=== PATIENT | female | born 1995 | race Caucasian/White ===

== ENCOUNTER 2019-03-29 11:47 | Outpatient (CLI) | payer OTHER ==
[2019-03-29] MEDS ORDERED: IOTHALAMATE MEGLUMINE 50 ML VIAL ONE ×2 (12:07→12:42)
[2019-03-29] MEDS ORDERED: GADOBUTROL 10 MMOL/10 ML VIAL ONE ×2 (12:07→12:42)
[2019-03-29] MEDS ORDERED: BUFFERED LIDOCAINE 10 ML SYRINGE ONE ×2 (12:08→12:42)
[2019-03-29] MEDS ORDERED: BUFFERED LIDOCAINE 10 ML SYRINGE IU ONE (12:45)
[2019-03-29] MEDS ORDERED: IOTHALAMATE MEGLUMINE 50 ML VIAL IVP ONE (12:45)
[2019-03-29] MEDS ORDERED: GADOBUTROL 10 MMOL/10 ML VIAL IVP ONE (12:45)
--- NOTE | 2019-03-29 17:04 | XRAY Report ---
Reason: RT HIP PAIN Procedure Date: 03/29/2019 Accession Number: [id number] / [id number] Procedure: FL - Arthrogram Needle Placement CPT Code: FULL RESULT: EXAM: RIGHT HIP ARTHROGRAPHIC INJECTION WITH FLUOROSCOPIC GUIDANCE EXAM DATE: 03/29/2019 12:26 PM. CLINICAL HISTORY: RT HIP PAIN. COMPARISON: None. TECHNIQUE: The risks, benefits, and alternatives of the procedure were discussed with the patient. All questions were answered. Written and verbal consent were obtained. The right hip joint was marked under fluoroscopy and prepped and draped in a sterile manner. Local anesthesia was performed with 1% lidocaine. A 22-gauge needle was then inserted into the hip joint. 10 mL of a solution containing 25% 1% lidocaine, 25% iodinated contrast, and a 1:200 dilution of gadolinium contrast in sterile saline was then injected. The needle was removed without immediate complication. Other: None. Fluoroscopy Time: 30 seconds. Number of Images: 3. FINDINGS: Bones and Joints: No fracture or subluxation. Injection: Fluoroscopic images demonstrate needle placement and contrast in the hip joint. IMPRESSION: Right RADIA
--- NOTE | 2019-03-29 17:05 | XRAY Report ---
Reason: RIGHT KNEE PAIN Procedure Date: 03/29/2019 Accession Number: [id number] / [id number] Procedure: FL - Arthrogram Needle Placement CPT Code: FULL RESULT: EXAM: RIGHT KNEE ARTHROGRAPHIC INJECTION WITH FLUOROSCOPIC GUIDANCE EXAM DATE: 03/29/2019 12:39 PM. CLINICAL HISTORY: RIGHT KNEE PAIN. COMPARISON: ARTHROGRAM KNEE RT 03/29/2019 1:17 PM. TECHNIQUE: The risks, benefits, and alternatives of the procedure were discussed with the patient. All questions were answered. Written and verbal consent were obtained. The right knee joint was marked under fluoroscopy and prepped and draped in a sterile manner. Local anesthesia was performed with 1% lidocaine. A 22-gauge needle was then inserted into the knee joint. 40 mL of a solution containing 50% iodinated contrast and a 1:200 dilution of gadolinium contrast in sterile saline was then injected. The needle was removed without immediate complication. Other: None. Fluoroscopy Time: 47 seconds. Number of Images: 2. FINDINGS: Bones and joints: No fracture or subluxation. Injection: Fluoroscopic images demonstrate needle placement and contrast in the knee joint. IMPRESSION: Successful fluoroscopically guided arthrographic injection of the right knee. RADIA
--- NOTE | 2019-03-30 10:17 | MRI Report ---
Reason: RT KNEE PAIN Procedure Date: 03/29/2019 Accession Number: [id number] / [id number] Procedure: MRI - Arthrogram Knee RT CPT Code: FULL RESULT: EXAM: RIGHT KNEE MRI ARTHROGRAM WITH CONTRAST EXAM DATE: 03/29/2019 01:56 PM. CLINICAL HISTORY: Right knee pain. COMPARISON: None. TECHNIQUE: Multiplanar, multisequence T1-weighted and fluid-sensitive sequences of the knee after an arthrographic injection of dilute gadolinium, dictated under a separate exam. Other: None. FINDINGS: Bones: No fractures or subluxations. No marrow edema. No bone lesions. Articular Cartilage: Unremarkable. Medial Meniscus: The medial meniscus is intact. Lateral Meniscus: The lateral meniscus is intact. Cruciate Ligaments: The anterior and posterior cruciate ligaments are intact. Collateral Ligaments: The medial collateral and lateral collateral ligamentous structures are intact. Tendons: The quadriceps, patellar, semimembranosus, and popliteus tendons are unremarkable. Musculature: No edema or fatty atrophy. Other: No popliteal cyst. No loose bodies. The medial and lateral retinacula are intact. The subcutaneous tissues and fat pads are unremarkable. IMPRESSION: 1. Overall, normal knee arthrogram. 2. Menisci, cruciates and collaterals appear unremarkable. No popliteal cyst, no loose bodies. RADIA
--- NOTE | 2019-03-30 15:49 | MRI Report ---
Reason: RT HIP PAIN Procedure Date: 03/29/2019 Accession Number: [id number] / [id number] Procedure: MRI - Arthrogram Hip RT CPT Code: FULL RESULT: EXAM: RIGHT HIP MRI ARTHROGRAM WITH CONTRAST EXAM DATE: 03/29/2019 02:58 PM. CLINICAL HISTORY: Right hip pain. COMPARISON: None. TECHNIQUE: Multiplanar, multisequence T1-weighted and fluid-sensitive, small abyye-gj-gulq sequences of the hip and large ycofh-hi-vsph sequences of the pelvis after an arthrographic injection of dilute gadolinium, dictated under a separate exam. Other: None. FINDINGS: Bones: No fractures or subluxations. No marrow edema or bone lesions. Right Hip: No acetabular retroversion. Femoral head/neck offset is within normal limits. No loose bodies. The articular cartilage is intact. There is some minimal marginal osteophytosis at the superolateral femoral head neck junction. Lateral center edge angle is 37.9 degrees. No discrete tears. There is a small amount of minimal increased signal in the superolateral labrum, however this is less dense than expected if a tear was present. Series 601 image 11. The ligamentum teres is intact. Other Joints: The visualized lumbar spine, sacroiliac joints, symphysis pubis, and contralateral hip are unremarkable. Musculature: No edema or fatty atrophy. The gluteus medius and minimus tendons are normal. The visualized hamstring tendons are normal. The ischiofemoral space is normal. Pelvic Cavity: The visualized viscera are unremarkable. No lymphadenopathy. No free fluid in the pelvis. Other: The visualized sciatic nerves are unremarkable. No bursitis. The subcutaneous tissues are unremarkable. IMPRESSION: 1. Normal bones, no fractures. No subjacent marrow edema. 2. Small amount of early osteoarthritic changes at the superolateral femoral head neck junction. 3. No dysplastic changes. 4. Labrum shows some mild undersurface increased signal but less than expected for a labral tear. No tears are noted. RADIA
== END 2019-03-29 11:48 | disposition home or self-care (01) ==
LOC: DI 11:47
PROVIDERS: ATTEND Family Medicine
DX: M16.11 Unilateral primary osteoarthritis, right hip (principal); M25.561 Pain in right knee
CPT/HCPCS: 27093; 27369; 73722; 77002; A9585; Q9961

== ENCOUNTER 2019-11-28 08:19 | Outpatient (CLI) | payer OTHER ==
--- NOTE | 2019-11-28 10:08 | MRI Report ---
PROCEDURE: Lumbar Spine W/O INDICATIONS: CHRONIC RT SIDED LOW BACK PAIN TECHNIQUE: Noncontrast sagittal T1 spin echo and T2 fast echo, sagittal STIR, axial T1 and T2 fast spin echo thr ough the lumbar spine. In cases with scoliosis, additional coronal T2 fast spin echo may be performe d. COMPARISON: None. FINDINGS: Image quality: Excellent. Alignment and Curvature: No plain films are available for comparison. Thus, for numbering purposes, 5 lumbar type vertebral bodies will be presumed for the current report. This should be confirmed with plain film correlation prior to any lumbar spinal intervention. There is mild grade 1 retrolisthesis of L5 on S1. Bone Marrow: Marrow is of normal overall signal. No acute vertebral body compression fractures. Mi ld reactive signal within the endplates adjacent to the L5-S1 intervertebral disc. Spinal Cord: Conus medullaris terminates at the lower L1 level. Visualized cord demonstrates normal signal and size. Paraspinous Soft Tissues: No paravertebral masses. T12-L1: Normal in appearance. L1-L2: Normal in appearance. L2-L3: Normal in appearance. L3-L4: Normal in appearance. L4-L5: Mild facet hypertrophy bilaterally. No significant canal, nor foraminal stenosis. L5-S1: Mild disc height loss and desiccation. Mild diffuse disc bulge with superimposed central prot rusion. Moderate bilateral facet hypertrophy. Mild canal stenosis. Mild bilateral foraminal stenosis. There is mild compression and posterior deviation of the right S1 nerve root. IMPRESSION: 1. Multilevel mild degenerative disc and facet disease, in addition to epidural lipomatosis and ligam entum flavum hypertrophy. 2. Mild compression and posterior deviation of the right S1 nerve root at the L5-S1 disc space level. Recommend correlation with clinical symptoms to ascertain relevance of this finding. 3. Five lumbar type vertebral bodies were presumed for the purposes of the current report. Correlati on with plainfilms for numbering purposes is recommended prior to any lumbar spinal intervention. Reviewed by: Jamel Rosas MD on 11/28/2019 10:06 AM PDT Approved by: Jamel Rosas MD on 11/28/2019 10:06 AM PDT Station ID: [id number]
== END 2019-11-28 08:20 | disposition home or self-care (01) ==
LOC: DI 08:19
PROVIDERS: ATTEND Physician Assistant Surgical
DX: M51.37 Other intervertebral disc degeneration, lumbosacral region (principal); M47.817 Spondylosis without myelopathy or radiculopathy, lumbosacral region; M47.816 Spondylosis without myelopathy or radiculopathy, lumbar region; M43.17 Spondylolisthesis, lumbosacral region; M48.07 Spinal stenosis, lumbosacral region; M51.27 Other intervertebral disc displacement, lumbosacral region; E88.2 Lipomatosis, not elsewhere classified
CPT/HCPCS: 72148

== ENCOUNTER 2023-08-31 16:41 | Outpatient (CLI) | payer OTHER ==
--- NOTE | 2023-09-01 10:44 | MRI Report ---
PROCEDURE: Shoulder LT WO INDICATIONS: SHOULDER PAIN TECHNIQUE: Noncontrast oblique coronal T2 fast spin echo with fat saturation, oblique sagittal T1 spin echo and T2 fast spin echo with fat saturation, axial T1 spin echo and T2 fast spin echo with fat saturation t hrough the shoulder. COMPARISON: None FINDINGS: Image quality: Diagnostic Rotator cuff Bulk: No significant atrophy Teres minor: Intact Supraspinatus: Small interstitial tear at the mid to distal tendon. There is also fraying of the burs al surface. Mild tendinopathy. Infraspinatus: Mild tendinopathy. Subscapularis: Intact Bones and bursae GH joint: Intact AC joint: Mild degenerative changes Humeral head: No acute fracture Scapula and acromion: No acute fracture Bursa: Mild bursitis Capsule Labrum: Possible superior labral tear. There is a possible additional sublabral foramen and recess ( /). Long head biceps tendon: Overall intact IGHL: Intact Rotator interval: Mildly effaced Soft tissues: Unremarkable IMPRESSION: Anterior superior labrum defect may represent tear, versus superimposed of labral anatomic recess/for amen. An MR arthrogram could be helpful. See image 09/13 Small tear and tendinopathy of the supraspinatus and infraspinatus. Mild acromioclavicular degenerative changes and subjacent bursitis. Mild effacement of the rotator interval fat, sometimes seen with capsulitis Reviewed by: Hu Morgan MD on 09/01/2023 10:43 AM PDT Approved by: Hu Morgan MD on 09/01/2023 10:43 AM PDT Station ID: [id number]
== END 2023-08-31 16:42 | disposition home or self-care (01) ==
LOC: DI 16:41
PROVIDERS: ATTEND Nurse Practitioner Family
DX: S46.012A Strain of muscle(s) and tendon(s) of the rotator cuff of left shoulder, initial encounter (principal); M19.012 Primary osteoarthritis, left shoulder; M75.52 Bursitis of left shoulder

== ENCOUNTER 2023-12-20 14:02 | Day surgery (SDC) | payer OTHER ==
[2023-12-20 14:51] LABS: BILIRUBIN,URINE NEGATIVE (NEGATIVE); GLUCOSE, URINE (UA) NEGATIVE (NEGATIVE); HCG UR QUAL NEGATIVE; KETONES,URINE (UA) NEGATIVE (NEGATIVE); LEUKOCYTE ESTERASE, URINE NEGATIVE (NEGATIVE); NITRITE,URINE NEGATIVE (NEGATIVE); OCCULT BLOOD,URINE NEGATIVE (NEGATIVE); PROTEIN,URINE NEGATIVE (NEGATIVE); UROBILINOGEN,URINE 0.2 (NORMAL) E.U./dL (NORMAL)
[2023-12-20 14:51] LABS: BASOPHILS % (AUTO) 0.1 %; HCT - HEMATOCRIT 41.9 % (37.0-47.0); HGB - HEMOGLOBIN 13.5 g/dL (12.0-16.0); LYMPHOCYTES # (AUTO) 1.9 10^3/uL (1.5-3.5); LYMPHOCYTES % (AUTO) 12.7 %; MEAN CORPUSCULAR HEMOGLOBIN 28.9 pg (27.0-31.0); MEAN CORPUSCULAR HGB CONC 32.2 g/dL (32.0-36.0); MEAN CORPUSCULAR VOLUME 89.7 fL (81.0-99.0); MEAN PLATELET VOLUME 10.1 fL (7.9-10.8); MONOCYTES # (AUTO) 1.1 10^3/uL (0.0-1.0); MONOCYTES % (AUTO) 7.2 %; NEUTROPHILS # (AUTO) 12.2 10^3/uL (1.5-6.6); NEUTROPHILS % (AUTO) 79.7 %; PLT - PLATELET COUNT 336 10^3/uL (130-450); RED BLOOD COUNT 4.67 10^6/uL (4.20-5.40); RED CELL DISTRIBUTION WIDTH 13.1 % (12.0-15.0); WHITE BLOOD COUNT 15.3 x10^3/uL (4.8-10.8)
[2023-12-20 14:52] LABS: CLARITY,URINE CLEAR (CLEAR)
[2023-12-20 15:04] LABS: ALBUMIN 4.6 g/dL (3.2-5.5); ALBUMIN/GLOBULIN RATIO 1.4 (1.0-2.2); BILIRUBIN,TOTAL 0.8 mg/dL (0.2-1.0); CALCIUM 9.9 mg/dL (8.5-10.3); CREATININE 0.7 mg/dL (0.6-1.3); POTASSIUM 3.6 mmol/L (3.5-4.5); TOTAL PROTEIN 7.9 g/dL (6.4-8.9)
--- NOTE | 2023-12-20 15:45 | ED Physician Documentation ---
PD HPI ABD PAIN - Stated complaint Stated Complaint: ABD PX,N/V,FEVER - Chief complaint Chief Complaint: Abd Pain - History obtained from History obtained from: Patient - Additional information Additional information: Otherwise healthy 28-year-old woman with history of presents with gradual onset abdominal pain starting in the middle of the night last night. She had a little stomach upset going to bed but did not seem out of the ordinary. She also had "a low-grade fever." She vomited several times but is no longer nauseous. 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 : None HEENT: None Psych: ADD/ADHD Musculoskeletal: None Derm: None - Past Surgical History Past Surgical History: No - Allergies Allergies/Adverse Reactions: Allergies Allergy/AdvReac Type Severity Reaction Status Date / Time No Known Drug Allergies Allergy Verified 12/20/23 15:36 - Social History Does the pt smoke?: No Smoking Status: Never smoker Does the pt drink ETOH?: Yes Does the pt have substance abuse?: No - Immunizations Immunizations are current?: Yes - POLST Patient has POLST: No PD ED PE NORMAL - Vitals Vital signs reviewed: Yes - General General: Alert and oriented X 3, No acute distress - Cardiac Cardiac: RRR, No murmur - Respiratory Respiratory: No respiratory distress, Clear bilaterally - Abdomen Abdomen: Normal bowel sounds, Soft, Other (Exquisitely tender in the right lower quadrant with positive Rovsing sign) - Neuro Neuro: Alert and oriented X 3, 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, Normal speech Results - Vitals Vitals: Vital Signs - 24 hr 12/20/23 12/20/23 14:17 16:19 Temperature 36.6 C Heart Rate 88 77 Respiratory 18 16 Rate Blood Pressure 140/90 H 123/83 H O2 Saturation 100 97 Oxygen O2 Source Room air - Labs Labs: Laboratory Tests 12/20/23 12/20/23 12/20/23 14:28 14:48 14:48 WBC 15.3 H RBC 4.67 Hgb 13.5 Hct 41.9 MCV 89.7 MCH 28.9 MCHC 32.2 RDW 13.1 Plt Count 336 MPV 10.1 Neut # (Auto) 12.2 H Lymph # (Auto) 1.9 [place] # (Auto) 1.1 H Eos # (Auto) 0.0 Baso # (Auto) 0.0 Absolute Nucleated RBC 0.00 Nucleated RBC % 0.0 Sodium 136 Potassium 3.6 Chloride 102 Carbon Dioxide 27 Anion Gap 7.0 BUN 7 Creatinine 0.7 Estimated GFR (MDRD) 100 Glucose 111 H Calcium 9.9 Total Bilirubin 0.8 AST 12 ALT 13 Alkaline Phosphatase 69 Total Protein 7.9 Albumin 4.6 Globulin 3.3 Albumin/Globulin Ratio 1.4 Lipase 13 Urine Color YELLOW Urine Clarity CLEAR Urine pH 7.0 Ur Specific [place] <=1.005 Urine Protein NEGATIVE Urine Glucose (UA) NEGATIVE Urine Ketones NEGATIVE Urine Occult Blood NEGATIVE Urine Nitrite NEGATIVE Urine Bilirubin NEGATIVE Urine Urobilinogen 0.2 (NORMAL) Ur Leukocyte Esterase NEGATIVE Ur Microscopic Review NOT INDICATED Urine Culture Comments NOT INDICATED Urine HCG, Qual NEGATIVE - Rads (name of study) CT abdomen pelvis consistent with appendicitis Relevant Findings:: Final report received, EMP independent interpretation of test PD Medical Decision Making - ED course ED course: 28-year-old woman presents with right lower quadrant pain. Differential would include appendicitis, pelvic etiology, or other. Workup in the emergency department initially shows that she has a white count of 15,000 with an otherwise normal CBC, normal CMP, normal urinalysis and negative test. She was treated initially with 1 mg of IV hydromorphone and 15 mg of IV ketorolac and a CT with IV contrast was ordered. Spoke with Dr. Luna after CT results at approximately 4:45 PM and he requested Zosyn and will see the patient with plan for OR shortly. Departure - Departure Disposition: ED Transfer to [facility] Clinical Impression: Appendicitis Qualifiers: Appendicitis type: acute appendicitis Acute appendicitis type: with localized peritonitis Appendicitis gangrene presence: without gangrene Appendicitis perforation presence: without perforation Appendicitis abscess presence: without abscess Qualified Code(s): K35.30 - Acute appendicitis with localized peritonitis, without perforation or gangrene Condition: Good Record reviewed to determine appropriate education?: Yes Forms: PCP List
[2023-12-20] MEDS ORDERED: iohexoL-300 100 ML VIAL ONE (15:51)
[2023-12-20] MEDS: KETOROLAC 15 MG/ML VIAL IVP STA (15:55)
[2023-12-20] MEDS: HYDROmorphone 1 MG/ML CARPUJECT IVP STA (15:56)
--- NOTE | 2023-12-20 16:38 | CT Report ---
PROCEDURE: Abdomen/Pelvis W INDICATIONS: iv only, rlq [pain CONTRAST: 100ml [id number] TECHNIQUE: After the administration of intravenous contrast, a CT scan of the abdomen and pelvis was performed. Images were recorded and evaluated at appropriate window settings. Reformats: coronal and sagittal. F or radiation dose reduction, the following was used: automated exposure control, adjustment of mA and /or kV according to patient size. COMPARISON: None. FINDINGS: Image quality: Diagnostic. Lower chest: Unremarkable. Liver: No solid mass. Gallbladder: No radiopaque stones or wall thickening. Biliary tree: No intrahepatic or extrahepatic dilation, accounting for age. Spleen: No splenomegaly. Pancreas: No pancreatic ductal dilation. Adrenals: No adrenal nodule. Kidneys and ureters: No hydronephrosis. No renal cystic lesion which requires follow up. No solid mas s. Stomach, bowel and peritoneum: No gastric or small bowel dilation. No abnormal wall thickening. No pa thologic free fluid. A tubular structure in the right lower quadrant is assumed to represent a disten ded, fluid-filled appendix with extensive inflammatory change in the adjacent fat. Findings are consi stent with acute appendicitis. Lymph nodes: No central or retroperitoneal adenopathy. Vessels: No infrarenal aortic aneurysm. Patent portal vein. PELVIS Reproductive organs: Unremarkable. Bladder: No abnormal wall thickening, accounting for underdistention. Pelvic lymph nodes: No pelvic adenopathy by size criteria. Bones: No aggressive osseous abnormality. Other: No significant ventral or inguinal hernia. IMPRESSION: 1. Findings very likely represent acute appendicitis. The presence of extensive inflammatory change i n the adjacent fat raises the question of rupture or impending rupture. Reviewed by: Taj Mckay MD on 12/20/2023 4:37 PM PDT Approved by: Taj Mckay MD on 12/20/2023 4:37 PM PDT Station ID: [id number]
[2023-12-20] MEDS ORDERED: fentaNYL 100 MCG/2 ML VIAL ONE (17:28)
[2023-12-20] MEDS ORDERED: MIDAZOLAM 2 MG/2 ML VIAL ONE (17:28)
[2023-12-20] MEDS ORDERED: ONDANSETRON 4 MG/2 ML VIAL ONE (17:30)
[2023-12-20] MEDS ORDERED: KETOROLAC 30 MG/ML VIAL ONE (17:30)
[2023-12-20] MEDS ORDERED: DEXAMETHASONE 4 MG/ML VIAL ONE (17:30)
[2023-12-20] MEDS ORDERED: ROCURONIUM 50 MG/5 ML VIAL ONE (17:30)
--- NOTE | 2023-12-20 17:37 | HISTORY & PHYSICAL EXAMINATION ---
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 She experienced an episode of nausea and vomiting followed by anorexia all day. Her pain has not resolved and she came to the ED for evaluation. She denies fevers or chills. She is in the ED with her room mate who will care for her child while she is hospitalized. 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: positive: section Social & Family Hx - Living Situation Living Arrangement: At home Living Situation: With friend(s) - Social History Does the pt smoke?: No Smoking Status: Never smoker Does the pt drink ETOH?: Yes Does the pt have substance abuse?: No - POLST Patient has POLST: No - Family History Family History: Mother: Diabetes, Type 2 Meds/Allgy - Allergies Allergies/Adverse Reactions: Allergies Allergy/AdvReac Type Severity Reaction Status Date / Time No Known Drug Allergies Allergy Verified 12/20/23 15:36 Review of Systems - Gastrointestinal Gastrointestinal: reports: Abdominal pain, Nausea, Vomiting Exam - Vital Signs Vital Signs: Vital Signs x48h Temp Pulse Resp BP Pulse Ox 12/20/23 16:19 77 16 123/83 H 97 12/20/23 14:17 97.9 F 88 18 140/90 H 100 - Physical Exam General Appearance: positive: No acute distress, Alert Eyes Bilateral: positive: Normal inspection, PERRL, EOMI ENT: positive: ENT inspection nml, Pharynx nml Neck: positive: Nml inspection, Thyroid nml, No JVD, Trachea midline Respiratory: positive: Chest non-tender, No respiratory distress, Breath sounds nml Cardiovascular: positive: Regular rate & rhythm, No murmur Peripheral Pulses: positive: 2+ Abdomen: positive: No distention, Tenderness, Other (RLQ tenderness with referred rebound to the RLQ; BS present. No guarding.) Skin: positive: Color nml, No rash, Warm Extremities: positive: Non-tender, Full ROM, Nml appearance Neurologic/Psychiatric: positive: Oriented x3 Results - Lab Results Fish Bones: 12/20/23 14:48 12/20/23 14:48 Other Lab Results: Lab Results x24hrs 12/20/23 12/20/23 12/20/23 Range/Units 14:48 14:48 14:28 WBC 15.3 H (4.8-10.8) x10^3/uL RBC 4.67 (4.20-5.40) 10^6/uL Hgb 13.5 (12.0-16.0) g/dL Hct 41.9 (37.0-47.0) % MCV 89.7 (81.0-99.0) fL MCH 28.9 (27.0-31.0) pg MCHC 32.2 (32.0-36.0) g/dL RDW 13.1 (12.0-15.0) % Plt Count 336 (130-450) 10^3/uL MPV 10.1 (7.9-10.8) fL Neut # (Auto) 12.2 H (1.5-6.6) 10^3/uL Lymph # (Auto) 1.9 (1.5-3.5) 10^3/uL [place] # (Auto) 1.1 H (0.0-1.0) 10^3/uL Eos # (Auto) 0.0 (0.0-0.7) 10^3/uL Baso # (Auto) 0.0 (0.0-0.1) 10^3/uL Absolute Nucleated RBC 0.00 x10^3/uL Nucleated RBC % 0.0 /100WBC Sodium 136 (135-145) mmol/L Potassium 3.6 (3.5-4.5) mmol/L Chloride 102 (101-111) mmol/L Carbon Dioxide 27 (21-32) mmol/L Anion Gap 7.0 (6-13) BUN 7 (6-20) mg/dL Creatinine 0.7 (0.6-1.3) mg/dL Estimated GFR (MDRD) 100 (>89) Glucose 111 H (74-104) mg/dL Calcium 9.9 (8.5-10.3) mg/dL Total Bilirubin 0.8 (0.2-1.0) mg/dL AST 12 (10-42) IU/L ALT 13 (10-60) IU/L Alkaline Phosphatase 69 (42-121) IU/L Total Protein 7.9 (6.4-8.9) g/dL Albumin 4.6 (3.2-5.5) g/dL Globulin 3.3 (2.1-4.2) g/dL Albumin/Globulin Ratio 1.4 (1.0-2.2) Lipase 13 (11-82) U/L Urine Color YELLOW Urine Clarity CLEAR (CLEAR) Urine pH 7.0 (5.0-7.5) PH Ur Specific [place] <=1.005 (1.002-1.030) Urine Protein NEGATIVE (NEGATIVE) mg/dL Urine Glucose (UA) NEGATIVE (NEGATIVE) mg/dL Urine Ketones NEGATIVE (NEGATIVE) mg/dL Urine Occult Blood NEGATIVE (NEGATIVE) Urine Nitrite NEGATIVE (NEGATIVE) Urine Bilirubin NEGATIVE (NEGATIVE) Urine Urobilinogen 0.2 (NORMAL) (NORMAL) E.U./dL Ur Leukocyte Esterase NEGATIVE (NEGATIVE) Ur Microscopic Review NOT INDICATED Urine Culture Comments NOT INDICATED Urine HCG, Qual NEGATIVE - Diagnostic Imaging Results Diagnostic Imaging Results: positive: See rad report, Read independently Diagnostic Imaging Results Comments: CT ABD/Pelvis - Dilated tubular structure in RLQ with surrounding edema. No abscess or free air. No fecalith. Impression/Plan - Problem List Problem List: Assessment: 1) Acute appendicitis Plan: 1) IV fluids/Zosyn 2) NPO 3) Laparoscopic appendectomy, possible open appendectomy under GETA Consent: Slime has been counseled for the procedure, it's indications, risks, benefits and expected outcome as well as alternative therapies. We specifically discussed risks associated with anesthesia, bleeding, infection, injury to surrounding structures which may require additional surgery, and the possible need for conversion to an open procedure. We also discussed the possible need for a blood transfusion with its risks and benefits. Slime understands, agrees, and consents to the proposed operative strategy and requests that we proceed with the procedure as outlined in our discussion. Guicho Luna MD, [facility] General Surgery Service
[2023-12-20] MEDS ORDERED: LIDOCAINE 1%-EPI 1:100000 20 ML MDV ONE (17:43)
[2023-12-20] MEDS ORDERED: BUPIVACAINE 0.25% PF 10 ML VIAL ONE (17:43)
[2023-12-20] MEDS: LIDOCAINE 1% 50 ML MDV SUBQ ONE ×2 (18:22)
[2023-12-20] MEDS: BUPIVACAINE 0.25% PF 10 ML VIAL SUBQ ONE ×2 (18:22)
[2023-12-20] MEDS ORDERED: GLYCOPYRROLATE 1 MG/5 ML VIAL ONE (18:27)
[2023-12-20] MEDS ORDERED: SUGAMMADEX 200 MG/2 ML VIAL IVP ONE (18:45)
[2023-12-20] MEDS ORDERED: ACETAMINOPHEN 1,000 MG/100 ML 1,000 MG/100 ML BAG IV ONE (18:52)
[2023-12-20] MEDS ORDERED: HYDROmorphone 0.5 MG/0.5 ML SYRINGE IVP PRN ×2 (18:58→19:18)
[2023-12-20] MEDS ORDERED: SODIUM CHLORIDE FLUSH 0.9% 10 ML SYRINGE IVP PRN (18:58)
[2023-12-20] MEDS ORDERED: ONDANSETRON 4 MG/2 ML VIAL IVP PRN ×2 (18:58→19:18)
[2023-12-20] MEDS: LACTATED RINGERS 300 ML IV ONE (18:59)
--- NOTE | 2023-12-20 19:05 | OPERATIVE REPORT ---
Operative Report - Other Other Information/Narrative: PROCEDURE DATE: 12/20/2023 PREOPERATIVE DIAGNOSIS: Slime is a 28 year old female who has clinical, CT, and laboratory findings consistent with acute appendicitis. Slime is being taken to the operating room for laparoscopic appendectomy, possible open appendectomy. 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 ESTIMATED BLOOD LOSS: 5 mL. DRAINS: None SPECIMEN: Appendix COMPLICATIONS None FINDINGS: Acutely inflamed, dilated appendix without gangrene or perforation DESCRIPTION OF OPERATION: After consent for the procedure was obtained, the patient was brought to the operating room where in the supine position, general endotracheal anesthesia was administered. A surgical time-out was performed, i ndicating the patient and the procedure to be performed. The abdomen was prepped with alcohol-free chloroprep and draped in a sterile fashion. The subcutaneous tissue of each of the planned port sites was infiltrated with 1% Lidocaine with epinephrine in a 50/50 mix with 1/4 % Marcaine mixture. Pneumoperitoneum was achieved through a subumbilical incision using a Rebecca cannula and an open technique. Under direct vision, a 5 mm muscle splitting, non-cutting port was placed in the right lower quadrant and an 12 mm muscle splitting, non-cutting port was placed in the left lower quadrant. Inspection revealed the above noted findings. Placing the patient in Trendelenburg position slightly rolled to the left allowed visualization of the appendix. The appendix was gently grasped with a ratcheted grasper and retracted superiorly and anteriorly. I then transected the mesoappendix with a harmonic scalpel and identified healthy tissue at the base of the appendix. The base of the appendix was stapled and transected flush with the cecum using an Endo-SHELBIE stapling device using gastrointestinal nay. The appendix was then brought out through the left lower quadrant port site incision using an EndoCatch device. Reinspection of the right lower quadrant revealed no evidence of bleeding or leakage from the previous dissection site. The right lower quadrant was irrigated with warm sterile saline. The irrigant was aspirated. A search was made for sponges, packs, instruments, and needles. None were found. The sponge, pack, instrument, and needle counts were relayed to me as being correct. The left lower quadrant port site was closed with a 2-0 Vicryl under direct vision using an endo-close device. The pneumoperitoneum then was released. There was no evidence of bleeding from the laparoscopic port sleeve sites upon release of the pneumoperitoneum. The subumbilical incision was closed with 2-0 Vicryl for the linea alba. The skin of each of the port sites was closed with interrupted 4-0 Vicryl in a subcuticular fashion with Steri-Strips to reinforce the epidermis. Dressings were placed. The patient tolerated the procedure well and was brought to the recovery room with stable vital signs.
[2023-12-20] MEDS ORDERED: MORPHINE 2 MG/ML CARPUJECT IVP PRN (19:18)
[2023-12-20] MEDS ORDERED: ATROPINE ABBOJECT 1 MG/10 ML SYRINGE IVP PRN (19:18)
[2023-12-20] MEDS ORDERED: METOCLOPRAMIDE 10 MG/2 ML VIAL IVP PRN (19:18)
[2023-12-20] MEDS ORDERED: NALOXONE 0.4 MG/ML VIAL IVP PRN (19:18)
[2023-12-20] MEDS ORDERED: ePHEDrine 50 MG/ML VIAL IVP PRN (19:18)
[2023-12-20] MEDS ORDERED: fentaNYL 100 MCG/2 ML VIAL IVP PRN (19:18)
--- NOTE | 2023-12-20 19:20 | ANESTHESIA ---
Pre-Anesthesia VS, & Labs - Diagnosis acute appendicitis - Procedure lap appy Vital Signs: Temp Pulse Resp BP Pulse Ox O2 Flow Rate 36.6 C 72 21 117/69 98 12/20/23 18:59 12/20/23 19:05 12/20/23 19:05 12/20/23 19:05 12/20/23 19:05 Height: 5 ft 7 in Weight (kg): 97 kg Body Mass Index: 33.5 BMI Classification: Obese - NPO >8 hours - Is Patient ?: No - Lab Results Current Lab Results: Laboratory Tests 12/20/23 14:48: Sodium 136, Potassium 3.6, Chloride 102, Carbon Dioxide 27, Anion Gap 7.0, BUN 7, Creatinine 0.7, Estimated GFR (MDRD) 100, Glucose 111 H, Calcium 9.9, Total Bilirubin 0.8, AST 12, ALT 13, Alkaline Phosphatase 69, Total Protein 7.9, Albumin 4.6, Globulin 3.3, Albumin/Globulin Ratio 1.4, Lipase 13 12/20/23 14:48: WBC 15.3 H, RBC 4.67, Hgb 13.5, Hct 41.9, MCV 89.7, MCH 28.9, MCHC 32.2, RDW 13.1, Plt Count 336, MPV 10.1, Neut # (Auto) 12.2 H, Lymph # (Auto) 1.9, [place] # (Auto) 1.1 H, Eos # (Auto) 0.0, Baso # (Auto) 0.0, Absolute Nucleated RBC 0.00, Nucleated RBC % 0.0 Fish Bones: 12/20/23 14:48 12/20/23 14:48 Home Medications and Allergies Active Medications Acetaminophen (Acetaminophen 325 Mg Tablet) 650 mg PO Q6HR DAMON Stop: 12/24/23 00:00 Fentanyl (Fentanyl 100 Mcg/2 Ml Vial) 25 - 50 mcg IVP Q5M PRN PRN Reason: BREAKTHROUGH PAIN (2nd Choice) Stop: 12/21/23 19:18 Heparin Sodium (Porcine) (Heparin 5,000 Unit/Ml Vial) 5,000 unit SUBQ BID DAMON Hydromorphone HCl (Hydromorphone 0.5 Mg/0.5 Ml Syringe) 0.5 mg IVP Q2H PRN PRN Reason: Severe Pain (Level 7-10) Lactated Ringer's (Lr) 1,000 mls @ 100 mls/hr IV .Q10H DAMON Piperacillin Sod/Tazobactam (Sod 3.375 gm/ Sodium Chloride) 100 mls @ 200 mls/hr IV Q6H [facility] Stop: 12/21/23 07:29 Lactated Ringer's (Lr) 1,000 mls @ 100 mls/hr IV .Q10H [facility] Stop: 12/21/23 05:59 Ibuprofen (Ibuprofen 600 Mg Tablet) 600 mg PO TIDWM [facility] Stop: 12/24/23 07:59 Ondansetron HCl (Ondansetron 4 Mg/2 Ml Vial) 4 mg IVP Q6H PRN PRN Reason: Nausea / Vomiting Sodium Chloride (Sodium Chloride Flush 0.9% 10 Ml Syringe) 10 ml IVP 0100,0900,1700 [facility]ON Sodium Chloride (Sodium Chloride Flush 0.9% 10 Ml Syringe) 10 ml IVP PRN PRN PRN Reason: NEEDED PER PROVIDER ORDERS Allergies/Adverse Reactions: Allergies Allergy/AdvReac Type Severity Reaction Status Date / Time No Known Drug Allergies Allergy Verified 12/20/23 15:36 Anes History & Medical History - Anesthetic History Anesthesia Complications: reports: No previous complications Family history of Anesthesia Complications: Denies Family history of Malignant Hyperthermia: Denies - Medical History Cardiovascular: reports: None Pulmonary: reports: None Gastrointestinal: reports: None Urinary: reports: None Neuro: reports: None Musculoskeletal: reports: None Endocrine/Autoimmune: reports: None Blood Disorders: reports: None Skin: reports: None Smoking Status: Former smoker (recently quit) Psychosocial: reports: No issues indicated - Surgical History Gynecologic: reports: section Orthopedic: reports: Spine surgery Exam General: Alert, Oriented x3, Cooperative Dental: WNL Mouth Openin Fingerbreadth Neck Mobility: Normal Mallampati classification: II Thyromental Distance: 4-6 cm Respiratory: Lungs clear Cardiovascular: Regular rate Plan Anesthesia Type: General Consent for Procedure(s) Verified and Reviewed: Yes Code Status: Attempt Resuscitation ASA classification: 2-Mild systemic disease Is this case an emergency?: Yes
--- NOTE | 2023-12-20 19:37 | ANESTHESIA POST OP EVALUATION ---
Anesthesia Post Eval - Post Anesthesia Eval Vitals: Last Vital Signs Temp 36.6 C 12/20/23 18:59 Pulse 69 12/20/23 19:30 Resp 17 12/20/23 19:30 BP 112/75 12/20/23 19:30 Pulse Ox 98 12/20/23 19:30 O2 Flow Rate CV Function Including HR & BP: Stable Pain Control: Satisfactory Nausea & Vomiting: Negative Mental Status: Baseline Respiratory Status: Airway Patent Hydration Status: Satisfactory Anesthesia Complications: None
[2023-12-20] MEDS: PIPERACILLIN/TAZOBACTAM 3.375 GM in SODIUM CHLORIDE 0.9% MINIBAG 100 ML IV STA (19:52)
[2023-12-20] MEDS ORDERED: LACTATED RINGERS 1,000 ML IV SCH (20:00)
[2023-12-20] MEDS: LACTATED RINGERS 1,000 ML IV SCH (20:06)
[2023-12-20] MEDS: HEPARIN 5,000 UNIT/ML VIAL SUBQ SCH (20:06)
[2023-12-20] MEDS: PIPERACILLIN/TAZOBACTAM 3.375 GM in SODIUM CHLORIDE 0.9% MINIBAG 100 ML IV SCH (22:08)
[2023-12-20] MEDS: ACETAMINOPHEN 325 MG TABLET PO SCH (23:53)
[2023-12-20] MEDS: SODIUM CHLORIDE FLUSH 0.9% 10 ML SYRINGE IVP SCH (23:59)
[2023-12-21 05:01] VITALS: O2SAT 98
[2023-12-21 05:49] LABS: BASOPHILS % (AUTO) 0.1 %; HCT - HEMATOCRIT 35.6 % (37.0-47.0); HGB - HEMOGLOBIN 11.7 g/dL (12.0-16.0); LYMPHOCYTES # (AUTO) 1.2 10^3/uL (1.5-3.5); LYMPHOCYTES % (AUTO) 11.8 %; MEAN CORPUSCULAR HEMOGLOBIN 29.5 pg (27.0-31.0); MEAN CORPUSCULAR HGB CONC 32.9 g/dL (32.0-36.0); MEAN CORPUSCULAR VOLUME 89.9 fL (81.0-99.0); MEAN PLATELET VOLUME 10.3 fL (7.9-10.8); MONOCYTES # (AUTO) 0.6 10^3/uL (0.0-1.0); MONOCYTES % (AUTO) 5.5 %; NEUTROPHILS # (AUTO) 8.6 10^3/uL (1.5-6.6); NEUTROPHILS % (AUTO) 82.3 %; PLT - PLATELET COUNT 293 10^3/uL (130-450); RED BLOOD COUNT 3.96 10^6/uL (4.20-5.40); RED CELL DISTRIBUTION WIDTH 13.2 % (12.0-15.0); WHITE BLOOD COUNT 10.5 x10^3/uL (4.8-10.8)
[2023-12-21 06:34] LABS: CREATININE 0.6 mg/dL (0.6-1.3); POTASSIUM 3.8 mmol/L (3.5-4.5)
--- NOTE | 2023-12-21 06:46 | PROVIDER PROGRESS NOTE ---
Progress Note General Surgery Post-op Note POD # 1 Laparoscopic appendectomy for acute appendicitis S: Feels good; Ambulatory; Port site pain minimal; Tolerating a diet; Pre- procedure discomfort resolved O: VSS, afeb; Lungs clear;Heart NSR; Abd Soft, + BS, port sites clean and dry; No distension; WBC normal today A: Acute appendicitis, s/p laparoscopic appendectomy - No post-op issues. Ready for discharge P: Discharge to home; Off work until seen in office; FU 7-10 days Cuauhtemoc Luna MD, FACS General Surgery Service
--- NOTE | 2023-12-21 07:19 | Discharge Plan ---
Discharge Plan Problem Reviewed?: Yes Disposition: Home, Self Care Condition: Good Prescriptions: Acetaminophen [Tylenol] 650 mg PO Q6HR #60 tab Diet: Regular Activity Restrictions: Light duty only Shower Restrictions: No (May start later today or tomorrow) Driving Restrictions: No Weight Bearing: No Weight Instruction Topics: Appendectomy Laparoscopic Dc Plan of Treatment: No regular work for 7-10 days; Limited duty may begin in 3 days. Additional Instructions or Follow Up instructions: FU General Surgery Clinic in 7-10 days. A nurse from our office will contact you in the next several days to make the arrangements. If you have questions or concerns, call the office at [phone] Cuauhtemoc Luna MD, [facility] General Surgery Service No Smoking: If you smoke, Please STOP! Call for help.
--- NOTE | 2023-12-21 07:25 | DISCHARGE SUMMARY ---
"Discharge Summary Admit Date: 12/19/23 Discharge Date: 12/20/23 Discharging Provider: Cheryl Condition at Discharge: Good Discharge Disposition: 01 Home, Self Care - DIAGNOSES Admission Diagnoses: Acute appendicitis Discharge Diagnoses with Status of Each Condition: Acute appendicitis - s/p laparoscopic appendectomy - HPI History of Present Illness: 28 year old female with clinical, lab, and image evidence of acute appendicitis - CONSULTS | PROCEDURES Consultations: None Procedures: 12/20/23 - Laparoscopic appendectomy - ALLERGIES Allergies/Adverse Reactions: Allergies Allergy/AdvReac Type Severity Reaction Status Date / Time No Known Drug Allergies Allergy Verified 12/20/23 15:36 - MEDICATIONS Home Medications: Ambulatory Orders Medication Instructions Recorded Confirmed Acetaminophen [Tylenol] 650 mg PO Q6HR #60 tab 12/21/23 Ibuprofen [Motrin] 600 mg PO TIDWM tab 12/21/23 - PHYSICAL EXAM AT DISCHARGE General Appearance: positive: No acute distress, Alert Eyes Bilateral: positive: Normal inspection, PERRL ENT: positive: ENT inspection nml Neck: positive: Nml inspection, Thyroid nml, No JVD Respiratory: positive: Chest non-tender, No respiratory distress, Breath sounds nml Cardiovascular: positive: Regular rate & rhythm, No murmur Peripheral Pulses: positive: 2+ Abdomen: positive: Non-tender, Nml bowel sounds, No distention Skin: positive: Color nml Extremities: positive: Non-tender Neurologic/Psychiatric: positive: Oriented x3 - LABS Result Diagrams: 12/21/23 05:30 12/21/23 05:30 - DIAGNOSTIC IMAGING Diagnostic Imaging Results: See rad report - QUALITY (Female Hip Fx Only) Was patient sent home on osteoporosis medication?: No - FOLLOW UP Follow Up: General Surgery Clinic in 7-10 days - TIME SPENT Time Spent in Discharge (Minutes): 30"
[2023-12-21] MEDS: IBUPROFEN 600 MG TABLET PO SCH (08:14)
[2023-12-21 08:26] VITALS: BP 115/65
== END 2023-12-21 09:30 | disposition home or self-care (01) ==
LOC: ED 14:02 → SDS 17:00 → MS2 19:04 → SDS 12-21 09:30
PROVIDERS: ATTEND Surgery
PROC: 0DTJ4ZZ Resection of Appendix, Percutaneous Endoscopic Approach (ICD-10-PCS; principal; 2023-12-20 18:00)
DX: K35.30 Acute appendicitis with localized peritonitis, without perforation or gangrene (principal); E66.9 Obesity, unspecified; Z68.33 Body mass index [BMI] 33.0-33.9, adult; Z87.891 Personal history of nicotine dependence
CPT/HCPCS: 36415; 44970; 74177; 80048; 80053; 81003; 81025; 83690; 85025; 96374; 96375; 99285; A9270; J0131; J1170; J7120; Q9967; 81001; 87086